=== PATIENT | female | born 1940 | race Caucasian/White ===

== ENCOUNTER 2020-04-10 07:45 | Outpatient (CLI) | payer OTHER, SELFPAY ==
--- NOTE | ~2020-04-10 | DEXA_ITS ---
Bone Density Report Name: Capri Ortiz Age: 79 Sex: Female Ethnicity: White Date of : 1940 Indication: osteopenia; parental hip fracture; height loss; history of glucocorticoids; rheumatoid arthritis; Referring Provider: Steph, Sandy Infante Study: Bone densitometry was performed. Exam Date: April 10, 2020 Accession number: [id number] Bone Density: Region BMD T-score Z-score Classification AP Spine (L1-L4) 0.823 -2.0 0.7 Osteopenia Femoral Neck (Left) 0.745 -0.9 1.5 Normal Total Hip (Left) 0.772 -1.4 0.8 Osteopenia Total Hip Bilateral Avg 0.774 -1.4 0.8 Osteopenia Femoral Neck (Right) 0.706 -1.3 1.1 Osteopenia Total Hip (Right) 0.775 -1.4 0.8 Osteopenia World Health Organization criteria for BMD impression classify patients as: Normal (T-score at or above -1.0), Osteopenia (T-score between -1.0 and -2.5), or Osteoporosis (T-score at or below -2.5). 10-year Fracture Risk(1): Major Osteoporotic Fracture 40% Hip Fracture 27% Reported Risk Factors: [place] (), Neck BMD=0.706, BMI=30.1, parental fracture, glucocorticoids, rheumatoid arthritis (1) FRAX(R) Version 3.08. Fracture probability calculated for an untreated patient. Fracture probability may be lower if the patient has received treatment. Previous Exams: Region Exam Age BMD T-score BMD Change BMD Change Date g/cm2 vs Baseline vs Previous AP Spine(L1-L4) 04/10/2020 79 0.823 -2.0 -0.028(-3.3%)# -0.028(-3.3%)# 10/20/2003 63 0.852 -1.8 Total Hip(Left) 04/10/2020 79 0.772 -1.4 -0.011(-1.5%)# -0.011(-1.5%)# 10/20/2003 63 0.783 -1.3 Total Hip(Right) 04/10/2020 79 0.775 -1.4 -0.036(-4.5%)# -0.036(-4.5%)# 10/20/2003 63 0.812 -1.1 *Denotes significance at 95% confidence level, LSC for AP Spine = 0.022 g/cm2, LSC for Total Hip = 0.027 g/cm2 Clinical Information Provided by Patient: Parent has had a hip fracture Has taken Glucocorticoids Has rheumatoid arthritis Has used the following medications: Vitamin D, Calcium Patient maximum height was 64 Menopause Age: 48 No regular weight bearing exercise Drinks caffeinated beverages Onset of menses at age 11 Number of children 4 Impression: The patient has low bone mass, based on the Total Spine T-score. The patient has an estimated ten-year risk of hip fracture of 27% and an estimated ten-year risk of major fracture of 40%, based on the WHO FRAX algorithm. The patient has risk factors, including: parenta
== END 2020-04-10 07:46 | disposition home or self-care (01) ==
LOC: ANHIMG 07:49
PROVIDERS: PCP Family Medicine; Visit Provider Nurse Practitioner
DX: Z78.0 Asymptomatic menopausal state (principal); M85.88 Other specified disorders of bone density and structure, other site; M85.852 Other specified disorders of bone density and structure, left thigh; M85.851 Other specified disorders of bone density and structure, right thigh
CPT/HCPCS: 77080

== ENCOUNTER 2020-06-22 13:48 | Outpatient (CLI) | payer OTHER, SELFPAY ==
--- NOTE | ~2020-06-22 | XR_ITS ---
EXAMINATION: XR hand BI arthritis min 3V DATE: 06/22/2020 14:02 INDICATION: Unspecified osteoarthritis, unspecified site. TECHNIQUE: 4 views of right hand and 4 views of left hand on a total of 7 radiographs were obtained. COMPARISON: Right knee radiographs 06/22/2013 FINDINGS: RIGHT HAND: There is ulnar subluxation of second distal phalanx with respect to the middle phalanx. T here is radial subluxation of third-fifth distal phalanges with respect to the middle phalanges and u lnar and dorsal subluxation of third and fourth middle phalanges with respect to the proximal phalang es. No fracture. There is moderate osteoarthritis of first carpometacarpal joint, mild osteoarthritis of the first-fifth metacarpophalangeal joints, severe osteoarthritis of first interphalangeal joint, second and fifth distal interphalangeal joints, and third and fourth proximal and distal interphalan geal joints, and mild osteoarthritis of the other interphalangeal joints. LEFT HAND: There is radial subluxation of fifth middle phalanx with respect to the proximal phalanx a nd third distal phalanx with respect to the middle phalanx. There is dorsal subluxation of third midd le phalanx with respect to the proximal phalanx. There is ankylosis of fifth distal interphalangeal j oint. No fracture. There is moderate osteoarthritis of radiolunate joint, severe osteoarthritis of tr iscaphe joint, moderate osteoarthritis of first carpometacarpal joint, mild osteoarthritis of the met acarpophalangeal joints and some of the interphalangeal joints, severe osteoarthritis of first interp halangeal joint, second and third distal interphalangeal joints, and fifth proximal interphalangeal j oint, and moderate osteoarthritis of third proximal interphalangeal joint. IMPRESSION: 1. Polyarticular osteoarthritis. Reviewed, dictated and finalized at location A.
== END 2020-06-22 13:49 | disposition home or self-care (01) ==
LOC: ANHIMG 13:50
PROVIDERS: PCP Family Medicine; Visit Provider Internal Medicine
DX: M06.9 Rheumatoid arthritis, unspecified (principal); M19.90 Unspecified osteoarthritis, unspecified site
CPT/HCPCS: 73130

== ENCOUNTER 2022-04-22 08:49 | Outpatient (CLI) | payer OTHER, SELFPAY ==
--- NOTE | ~2022-04-22 | DEXA_ITS ---
Bone Density Report Name: ADELIA MARQUIS Age: 81 Sex: Female Ethnicity: White Date of : 1940 Indication: postmenopausal; screening for osteoporosis; history of glucocorticoids; rheumatoid arthritis; Referring Provider: SANJANA BRAUN Study: Bone densitometry was performed. Exam Date: April 22, 2022 Accession number: [id number] Bone Density: Region BMD T-score Z-score Classification AP Spine(L1-L4) 0.914 -1.2 1.6 Osteopenia Femoral Neck (Left) 0.714 -1.2 1.3 Osteopenia Total Hip (Left) 0.813 -1.1 1.2 Osteopenia Femoral Neck (Right) 0.691 -1.4 1.0 Osteopenia Total Hip (Right) 0.826 -1.0 1.3 Normal Total Hip Mean 0.819 -1.1 1.3 Osteopenia World Health Organization criteria for BMD impression classify patients as: Normal (T-score at or above -1.0), Osteopenia (T-score between -1.0 and -2.5), or Osteoporosis (T-score at or below -2.5). 10-year Fracture Risk(1): Major Osteoporotic Fracture 25% Hip Fracture 8.0% Reported Risk Factors: [place] (), Neck BMD=0.691, BMI=28.3, glucocorticoids, rheumatoid arthritis (1) FRAX(R) Version 3.08. Fracture probability calculated for an untreated patient. Fracture probability may be lower if the patient has received treatment. Clinical Information Provided by Patient: Has taken Glucocorticoids Has rheumatoid arthritis Has used the following medications: Fosamax (i.e. alendronate), Vitamin D, Calcium Patient maximum height was 63 Menopause Age: 48 No regular weight bearing exercise Drinks caffeinated beverages Onset of menses at age 10 Number of children 4 Impression: The patient has low bone mass, based on the Right Femoral Neck T-score. The patient has an estimated ten-year risk of hip fracture of 8% and an estimated ten-year risk of major fracture of 25%, based on the WHO FRAX algorithm. The patient has risk factors, including: history of glucocorticoid therapy. Discussion: BONE DENSITY IS LOW AT ONE OR MORE SKELETAL SITES. THE PATIENT'S BMD AND CLINICAL RISK FACTORS CONTRIBUTE TO THIS PATIENT'S HIGH RISK OF FRACTURE. This patient's lowest T-score is low at one or more skeletal sites. It meets the World Health Organization's (WHO) criteria for ?low bone mass? (T-score between -1.0 and -2.5). The patient's 10-year risk of hip fracture and 10 year risk of a major osteoporotic fracture as calculated by FRAX exceeds the threshold where pharmacological therapy is recommended by the National Osteoporosis Foundation (NOF). However, all treatment decisions require clinical judgment and consideration of individual patient factors, including patient preferences, comorbidities, previous drug use, risk factors not captured in the FRAX model (e.g., frailty, falls, vitamin D deficiency, increased bone turnover, interval significant decl
== END 2022-04-22 08:50 | disposition home or self-care (01) ==
PROVIDERS: PCP Internal Medicine; Visit Provider Internal Medicine
DX: M81.8 Other osteoporosis without current pathological fracture (principal); T38.0X5A Adverse effect of glucocorticoids and synthetic analogues, initial encounter; M85.88 Other specified disorders of bone density and structure, other site; M85.852 Other specified disorders of bone density and structure, left thigh; M85.851 Other specified disorders of bone density and structure, right thigh
CPT/HCPCS: 77080

== ENCOUNTER 2024-12-04 15:34 | Outpatient (CLI) | payer OTHER, SELFPAY ==
--- OUTSIDE RECORDS SUMMARY | 2009-12-31 04:15 | XMS_ITS | Continuity of Care Document ---
Author Organization [facility] Address [address] [place] [address] [place] [address] Phone Care Team Providers Care Business Systems Technician Name Role Phone GayleGregorio wasserman Unavailable Unavailable Procedures Procedure Date Office/outpatient Visit, Est Fundus Photography W/ Report Visual Field Examination-Professional Ju Visual Field Examination(s) Office/outpatient Visit, Est Post-op Follow-up Visit Post-op Follow-up Visit Post-op Follow-up Visit Post-op Follow-up Visit Nov- Remove Cataract, Insert Lens Office/outpatient Visit, Est IOLMaster-Professional Office/outpatient Visit, Est Fundus Photography W/ Report Visual Field Examination(s) Office/outpatient Visit, Est Office/outpatient Visit, Est Office/outpatient Visit, Est Post-op Follow-up Visit Laser Surgery Of Eye Office/outpatient Visit, Est Visual Field Examination(s) Office/outpatient Visit, Est Fundus Photography W/ Report Office/outpatient Visit, Est Visual Field Examination(s) Advance Directives Directive Yes / No Effective Date File Name No Information Encounters Encounter Description Practice Location Reason(s) For Visit Diagnoses Date Provider Providers Copied on Encounter Office/outpat ient Visit, Est [employer] [facility], [address], [place], [place], [id number], [place] tel:[phone] [facility] No Information 0 Sam Perkins. [address], [address], [place], [address], [place]. tel:[phone] Referring Provider: Gregorio Butcher, [address], [place], [place], [facility]. tel:[phone] [facility], [address], [place], [place], [address], [place] tel:[phone] [facility] No Information 0 Krishnasamy Paras. [address], [place], [place], [facility], [place]. tel:[phone] Referring Provider: Paras magaña, [address] [place], [place] [address], [place], [facility]. tel:[phone] [facility], [address] [place] [address] [address], [place], [place], [address], [place] tel:[phone] [facility] No Information 0 Krishnasamy Paras. [facility] [address], [place], [facility], [place]. tel:[phone] Referring Provider: Paras magaña, [address] [place], [place] [address], [place], [facility]. tel:[phone] Office/outpat ient Visit, Est [facility], [address], [place], [place], [address], [place] tel:[phone] [facility] No Information 0 Krishnasamy Paras. [address] [place], [place] [address]ate [address], [place], [facility], [place]. tel:[phone] [facility], [address] [place], [place] [address], [place], [place], [address], [place] tel:[phone] [facility] No Information Nov-2 0-200 9 Krishnasamy Paras. [address] [facility] [address], [place], [address], [place]. tel:[phone] [facility], [address], [place], [place], [address], [place] tel:[phone] [facility] No Information Nov-0 5-200 9 Krishnasamy Paras. [address] [facility] [address], [place], [address], [place]. tel:[phone] [facility], [address] [place] [address] [address], [place], [place], [address], [place] tel:[phone] [facility] No Information Oct-2 8-200 9 Krishnasamy Paras. [address] [facility] [address], [place], [address], [place]. tel:[phone] [facility], [address], [place], [place], [address], [place] tel:[phone] [facility] No Information Oct-2 3-200 9 Herring OD Rosendo. [address] [facility] [address], [place], [address], [place]. tel:[phone] [facility], [address] [place] [address] [address], [place], [place], [address], [place] tel:[phone] [facility] No Information Oct-2 2-200 9 Krishnasamy Paras. [address] [facility] [address], [place], [address], [place]. tel:[phone] Office/outpat ient Visit, Est [facility], [address], [place], [place], [address], [place] tel:[phone] [facility] No Information Sep-1 6-200 9 Krishnasamy Paras. [facility] [address], [place], [facility], . tel:[phone] Referring Provider: Rosendo Butcher, [address] [facility] [address], [place], [facility]. tel:[phone] Office/outpat ient Visit, [facility], [address] [place] [address] [address], [place], [place], [address], [place] tel:[phone] [facility] No Information Sep-0 3-200 9 Krishnasamy Paras. [facility] [address], [place], [facility], [place]. tel:[phone] Referring Provider: Paras magaña, [address] [place] [address] [address], [place], [facility]. tel:[phone] [facility], [address] [place] [address] [address], [place], [place], [address], [place] tel:[phone] [facility] No Information Apr-2 8-200 9 Krishnasamy Paras. [facility] [address], [place], [facility], [place]. tel:[phone] Referring Provider: Paras magaña, [address] [place], [place] [address]ate [facility] 102, [place], [facility]. tel:[phone] Office/outpat ient Visit, [facility], [address], [place], [place], [address], [place] tel:[phone] [facility] No Information Dec-0 3-200 8 Krishnasamy Paras. [address] [place] [address], [place], [facility], [place]. tel:[phone] Office/outpat ient Visit, [facility], [address], [place], [place], [address], [place] tel:[phone] [facility] No Information Sep-1 0-200 8 Krishnasamy Paras. [facility] [address], [place], [facility], [place]. tel:[phone] Office/outpat ient Visit, [facility], [address] [place] [address] [address], [place], [place], [address], [place] tel:[phone] [facility] No Information Olegario-0 9-200 8 Krishnasamy Paras. [address] [place] [address], [place], [facility], [place]. tel:[phone] [facility], [address] [place] [address] [address], [place], [place], [address], [place] tel:[phone] [facility] No Information Pedro Pablo-1 8-200 8 Krishnasamy Paras. [address] [place] [address], [place], [facility], [place]. tel:[phone] [facility], [address] [place] [address] [address], [place], [place], [address], [place] tel:[phone] [facility] No Information Pedro Pablo-1 0-200 8 Krishnasamy Paras. [address] [place] [address], [facility], [place]. tel:[phone] Referring Provider: Paras magaña, [address] [place], [place] [address], [facility]. tel:[phone] Office/outpat ient Visit, [facility], [address] [place] [address] [address], [place], [place], [address], [place] tel:[phone] [facility] No Information May-0 7-200 8 Krishnasamy Paras. [address] [place] [address], [facility], [place]. tel:[phone] [facility], [address], [place], [place], [address], [place] tel:[phone] [facility] No Information May-2 2-200 8 Kimberlee Crain. [address] [address], [place], [facility], [place]. tel:[phone] Referring Provider: Alexis Butcher, [address], [place], [address] . tel:[phone] Office/outpat ient Visit, Est [facility], [address], [place], [place], [address], [place] tel:[phone] [facility] No Information Dec-1 7-200 7 Wankum Alexis. [address], [place], [address], [place]. tel:[phone] Referring Provider: Alexis Butcher, [address], [place], [address] . tel:[phone] Office/outpat ient Visit, [facility], [address], [place], [place], [address], [place] tel:[phone] [facility] No Information Pedro Pablo- 1-200 7 Wankum Alexis. [address], [place], [place], [address], [place]. tel:[phone] [facility], [address], [place], [place], [address], [place] tel:[phone] [facility] No Information Dec-2 8-200 6 Wankum Alexis. [address], [place], [address], [place]. tel:[phone] Referring Provider: Alexis Butcher, [address] [place], [address] . tel:[phone] Family History Family Member Type Diagnosis Age At Onset No Information Payers Payer name Insurance type Covered alliance party ID Rory sellers(s) [employer] [id number] Social History Type Description Quantity Date Captured Comments Sex Female Smoking Status No Information Chief Complaint And Reason For Visit No Information Reason For Referral Reason For Referral No Information History Of Present Illness Encounter Date Complaint History Of Prese nt Illness No Information Functional Status Date Functional Assessmen t No Information Instructions Date Instruction Additional Infor mation No Information Assessments Type Assessment Date No Information Patient Care Teams Name Effective Dates (start - stop) Status Members No Information
--- NOTE | ~2024-12-04 | US_ITS ---
EXAMINATION: US venous doppler [facility], 12/04/2024 15:50 CDT HISTORY: M79.661 - Pain in right lower leg COMPARISON: None Technique: Caballero-scale and color Doppler images were attempted of the lower saphenofemoral junction, common femoral vein,superficial femoral vein, proximal deep femoral vein, proximal deep femoral vein, popliteal vein and posterior tibial veins. Findings: Deep Venous System:Normal flow, augmentation and compressibility. No echogenic thrombus identified. Superficial Venous SystemNo superficial thrombophlebitis. Soft tissues: Soft tissues are unremarkable. Impression: Negative for DVT. Reviewed, dictated and finalized at location P. Impression: Negative for DVT.
--- OUTSIDE RECORDS SUMMARY | 2024-12-04 17:32 | XMS_ITS | Encounter Summary ---
Author Organization [facility] Address [facility]ly [facility] [place] [address] Care Team Providers Care Maintenance Helper Name Role Phone Kilo Corcoran MD Unavailable Kilo Lee MD Unavailable [phone] Robert Messina MD Unavailable [phone] Encounter Details Date Type Department Care Team (Late st Contact Info) Description 04/06/2022 [employer] Message Enc [facility] - [place] [address] [facility], [address] [place] [address] Patience, [facility] Provider Overdue Annual Physical Social History Tobacco Use Types Packs/Day Years Used Date Smoking Tobacco: Never Smokeless Tobacco: Never Comments:The provider can pr ovide you with more information about quitting. Alcohol Use Standard Drinks/Week Comments Not Currently 0 (1 standard drink = 0.6 oz pur e alcohol) Very rarely PHQ-2 Answer Date Recorded PHQ-2 Score - If the patient scores above 3, please move on to questions 3-9 1 06/08/2021 Comments No Sex and Gender Information Value Date Recorded Sex Assigned at Not on file Legal Sex Female 9:19 AM CDT Gender Identity Not on file Sexual Orientation Not on file documented as of this encounter Plan of Treatment Not on file documented as of this encounter Visit Diagnoses Not on filedocumented in this encounter Additional Health Concerns Assessment Noted Time PHQ-9 Depression Total Score: 5 06/09/19 22 8:54 AM CDT documented as of this encounter Care Teams Maintenance Helper Relationship Specialty Start Date End Date Kilo Corcoran MD [facility] [address] [address] OPTOMETRY 03/10/20 Kilo Lee MD [facility] [address] [address] Physician OPHTHALMOLOGY 03/10/20 Robert Messina MD [facility] [address] [address] RHEUMATOLOGY 06/08/21 documented as of this encounter
--- OUTSIDE RECORDS SUMMARY | 2024-12-04 17:32 | XMS_ITS | Clinical Summary ---
Author Organization [facility] Address [address] [place] [address] Care Team Providers Care Production Control Specialist Name Role Phone Kilo Corcoran MD Unavailable Kilo Lee MD Unavailable [phone] Robert Messina MD Unavailable [phone] Allergies No known active allergies Medications latanoprost 0.005 % ophthalmic solution Place 1 drop into both eyes nightly at bedtime. 09/12/19 20 Active dorzolamide-timolo l 22.3-6.8 MG/ML Solution Place 1 drop into both eyes 2 (two) times a day. 08/13/19 20 Active brimonidine 0.2 % ophthalmic solution Place 1 drop into both eyes 2 (two) times a day. 07/31/19 20 Active Multiple Vitamins-Minerals (PRESERVISION AREDS OR) Take 2 capsules by mouth daily. Active Multiple Vitamins-Minerals (MULTIVITAL OR) Take 1 tablet by mouth daily. Active vitamin C 500 MG tablet Take 500 mg by mouth daily. Active Cholecalciferol (VITAMIN D3) 1.25 MG (85442 UT) Tab Take 1 tablet by mouth daily. Active calcium carbonate 1500 (600 Ca) MG tablet Take 1,500 mg by mouth daily. Active hydroxychloroquine 200 MG tabletIndications: Encounter for medical examination to establish care Take 1 tablet (200 mg total) by mouth daily. 90 tablet 02/17/20 Active folic acid 1 MG tabletIndications: Encounter for medical examination to establish care Take 1 tablet (1 mg total) by mouth daily. 90 tablet 02/17/20 20 Active METHOTREXATE 2.5 MG tabletIndications: Encounter for medical examination to establish care TAKE 4 TABLETS (10 MG TOTAL) BY MOUTH WEEKLY. 12 tablet 03/18/19 21 Active FLUTICASONE PROPIONATE 50 MCG/ACT nasal sprayIndications:S easonal allergies SPRAY 1 SPRAY INTO EACH NOSTRIL EVERY DAY 16 mL 3 05/19/19 21 Active predniSONE 1 MG tablet Take 1 mg by mouth see administration instructions. Every Monday, Monday and Monday through the end of May. Then medication with be discontinued. (per law enforcement officer) 09/15/19 21 Active SIMVASTATIN 10 MG tabletIndications: Hyperlipidemia, unspecified hyperlipidemia type TAKE 1 TABLET BY MOUTH EVERY DAY 90 tablet 1 05/07/19 22 Active AMLODIPINE 10 MG tabletIndications: Hypertension, unspecified type TAKE 1 TABLET BY MOUTH EVERY DAY 90 tablet 1 05/07/19 22 Active QUINAPRIL 40 MG tabletIndications: Hypertension, unspecified type TAKE 1 TABLET BY MOUTH TWICE A DAY 180 tablet 1 05/07/19 22 Active HYDROCHLOROTHIAZID E 25 MG tabletIndications: Hypertension, unspecified type TAKE 1/2 TABLET BY MOUTH EVERY MORNING 45 tablet 3 07/21/19 22 Active Active Problems Problem Noted Date Diagnosed Date Osteopenia, unspecified location 03/29/2021 Hypertension, unspecified type 09/23/2019 Hyperlipidemia, unspecified hyperlipidemia type 09/23/2019 Macular degeneration of both eyes, unspecified t ype 09/23/2019 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, unspecified glaucoma stage, unspecified primary angle-closure glaucoma type 09/23/2019 Resolved Problems Problem Noted Date Diagnosed Date Resolved Date Rheumatoid arthritis of hand , unspecified laterality, unspecified rheumatoid factor presence 09/23/2019 03/29/2021 Immunizations Immunization Administration Dates Next Due AFLURIA QUAD >36 MONTHS (MULTI-DOSE VIAL) 2018 Fluzone High Dose - >Age 65 (Prefilled Syringe) 10/17/2019,11/07/2018 Influenza Adult (Generic) 11/07/2018 Pneumococcal (Pneumovax 23) 11/26/2018, 6,02/20/2011 Pneumococcal (Prevnar 13) 06/08/2021 Shingrix 03/11/2019,11/26/2018 Tdap (Boostrix) 11/26/2018 Tdap (Generic) 02/21/2008 Zoster (Zostavax) 31926 Unt/0.65Ml 02/21/2016 Family History Medical History Relation Comments Heart Father Diabetes Mother Relation Status Comments Father Mother Social History Tobacco Use Types Packs/Day Years Used Date Smoking Tobacco: Never Smokeless Tobacco: Never Tobacco Cessation:Counseling Given: No Comments:The provider can provide you with more information about quitting. Alcohol [...] on file Sexual Orientation Not on file Last Filed Vital Signs Vital Sign Reading Time Taken Comments Blood Pressure 136/82 06/08/2021 8:43 AM CDT Pulse 75 06/08/2021 8:43 AM CDT Temperature 36.6 C (97.8 F) 06/08/2021 8:43 AM CDT Respiratory Rate 16 06/08/2021 8:43 AM CDT Oxygen Saturation 97% 06/08/2021 8:43 AM CDT Inhaled Oxygen Concentration - - Weight 76 kg (167 lb 9.6 oz) 06/08/2021 8:43 AM CDT Height 162.6 cm (5' 4) 06/08/2021 8:43 AM CDT Body Mass Index 28.77 06/08/2021 8:43 AM CDT Plan of Treatment Health Maintenance Due Date Last Done Comments RSV Immunization or 60+ Years (1 - 1-dose 75+ series) 2013 Annual Medicare Wellness Visit 06/09/2022 06/08/2021, 03/10/2020 COVID-19 Vaccine (2024- season) 2024 12/14/2020, 2020, 04/17/2020 Influenza Adult (#1) 2024 10/17/2019, 11/07/2018, 11/07/2018, Additional history exists DTaP, Tdap and Td Vaccines (3 - Td or Tdap) 11/26/2028 11/26/2018, 02/21/2008 Zoster Vaccines Completed 03/11/2019, 08/2018, 02/21/2016 Pneumococcal Vaccine: 50+ Years Completed 06/08/2021, 11/26/2018, 02/20/2015, Additional history exists Hepatitis A Vaccines Aged Out No long er eligible based on patient's age to complete this topic Meningococcal B Vaccine Aged Out No l onger eligible based on patient's age to complete this topic Meningococcal Vaccine Aged Out No parviz michael eligible based on patient's age to complete this topic RSV Immunizations Under 20 Months Aged Out No longer eligible based on patient's age to complete this topic Insurance [employer] Advance Directives Documents on File Type Date Recorded Patient Field Foreman Expl anation Power of Information And Referral Director 06/08/2021 9:40 AM Care Teams Production Control Specialist Relationship Specialty Start Date End Date Kilo Corcoran MD [employer] [address] [place] [id number] OPTOMETRY 03/10/20 Kilo Lee MD [employer] [address] [place] [id number] Physician OPHTHALMOLOGY 03/10/20 Robert Messina MD [employer] [address] [place] [id number] RHEUMATOLOGY 06/08/21
== END 2024-12-04 15:35 | disposition home or self-care (01) ==
PROVIDERS: PCP Nurse Practitioner; Visit Provider Nurse Practitioner
DX: M79.661 Pain in right lower leg (principal); M79.662 Pain in left lower leg
CPT/HCPCS: 93970